=== PATIENT | male | born 1955 | race Caucasian/White ===

== ENCOUNTER 2018-08-10 08:19 | Day surgery (SDC) | payer MEDICARE, BC ==
[2018-08-10] MEDS ORDERED: Dexamethasone 4 MG/ML SDV IVPUSH ONE (08:20)
[2018-08-10] MEDS ORDERED: fentaNYL 100 MCG/2 ML SDV IV ONE (08:20)
[2018-08-10] MEDS ORDERED: Labetalol 20 MG/4 ML Syringe IVPUSH ONE (08:20)
[2018-08-10] MEDS ORDERED: Midazolam 1 MG/ML 2 ML SDV IV ONE (08:20)
[2018-08-10] MEDS ORDERED: Sodium Chloride 0.9% 10 ML Syringe FLUSH PRN (08:45)
--- NOTE | 2018-08-11 03:26 | OR ---
DATE OF OPERATION: 08/10/2018 SURGEON: Annabelle Lozada MD PREOPERATIVE DIAGNOSIS: Visually significant cataract, right eye. POSTOPERATIVE DIAGNOSIS: Visually significant cataract, right eye. PROCEDURE PERFORMED: Phacoemulsification with intraocular lens placement, right eye. HOSPICE ENTRANCE ATTENDANT: None. ANESTHESIA: Local with sedation. FINDINGS: Very dense cataract. COMPLICATIONS: None. IMPLANTS: An Abel [id number] 15.0 diopter lens. CDE: 31.98. DESCRIPTION OF PROCEDURE: After risks and benefits were reviewed with the patient, the right eye was marked with surgical pen and consent was obtained in the preoperative area. The patient received preoperative drops of moxifloxacin, ketorolac, and dilating drops. The patient also received topical tetracaine for anesthesia. The patient was taken to the operating room, where the patient was placed under monitored anesthesia care and received further tetracaine drops. A timeout was performed. The right eye was prepped and draped in the usual sterile fashion for ophthalmic surgery, and the microscope was brought into position and focused. A paracentesis incision was made followed by injection of 1% preservative-free lidocaine into the anterior chamber, followed by injection of Viscoat into the anterior chamber. A corneal limbal incision was made temporally. A cystotome was used to make the beginning of a capsulorhexis, which was carried around 360 degrees in a curvilinear fashion using Utrata forceps. A Redding cannula was used to hydrodissect and hydrodelineate the nucleus. The nucleus was removed in a divide and conquer manner using phacoemulsification. Irrigation and aspiration was used to remove the remaining cortical material. Provisc was injected into the capsular bag and the anterior chamber. A preloaded Abel [id number] 15.0 diopter lens, serial number [id number], was injected into the capsular bag. A Sinskey hook was used to center the lens. Irrigation and aspiration was used to remove the remaining cortical material and Viscoat from the anterior chamber. BSS on a cannula was used to inflate the anterior chamber and hydrate the wound. The wound was checked and found to be watertight. 1 mg of vancomycin was injected into the anterior chamber. Drapes were removed and the eye was cleaned, and a drop of brimonidine and Tobradex were placed. The eye was shielded, and the patient was taken to Recovery in stable condition. /[id number] CRYSTAL/DARNELL CC: GARRETT Shane MD MTDD
== END 2018-08-10 12:09 | disposition home or self-care (01) ==
LOC: FB.SDS 08:19
PROVIDERS: ATTEND Ophthalmology
DX: H25.9 Unspecified age-related cataract (principal); H35.371 Puckering of macula, right eye; J45.909 Unspecified asthma, uncomplicated; Z87.891 Personal history of nicotine dependence
CPT/HCPCS: 00142-QZ; J1100; J2001; J2250; J3010; J3490

== ENCOUNTER 2018-09-07 06:15 | Day surgery (SDC) | payer MEDICARE, BC ==
[2018-09-07] MEDS ORDERED: Midazolam 1 MG/ML 2 ML SDV IV ONE (06:16)
[2018-09-07] MEDS ORDERED: fentaNYL 100 MCG/2 ML SDV IV ONE (06:16)
--- NOTE | 2018-09-08 12:21 | OR ---
DATE OF OPERATION: 09/07/2018 SURGEON: Annabelle Lozada MD PREOPERATIVE DIAGNOSIS: Visually significant cataract, left eye. POSTOPERATIVE DIAGNOSES: 1. Visually significant cataract, left eye. 2. Floppy iris syndrome, left eye. PROCEDURE PERFORMED: Complex phacoemulsification with intraocular lens placement, left eye. CPT code 06297. SENIOR SOFTWARE ARCHITECT: None. ANESTHESIA: Local with sedation. COMPLICATIONS: None. BLOOD LOSS: None. FINDINGS: Floppy iris syndrome and dense cataracts. IMPLANTS: Abel [id number], 15.5 diopter lens implanted. CDE: 17.18. DESCRIPTION OF PROCEDURE: After risks and benefits were reviewed with the patient, consent was obtained in the preoperative area, and the left eye was marked with surgical pen. The patient received dilating drops and moxifloxacin along with ketorolac in the preoperative area. The patient was taken to the operating room, where a time-out was performed, and the patient was placed under monitored anesthesia care. Topical tetracaine was used for anesthesia. The left eye was prepped and draped for ophthalmic surgery and microscope was brought into position and focused. A paracentesis incision was made followed by injection of preservative-free 1% lidocaine into the anterior chamber, followed by injection of Viscoat into the anterior chamber. The pupil was noted to be poorly dilated. A microkeratome blade was used to make a corneal limbal incision temporarily. Next, a Malyugin ring 7.0 mm was used to retract the iris further, due to poor dilation and floppy iris syndrome. A cystotome was used to make the beginning of a capsulorhexis, which was carried around 360 degrees in a curvilinear fashion using Utrata forceps. A Redding cannula with BSS was used to hydrodissect and hydro-delineate the nucleus. The nucleus was removed in a [id number] manner using phacoemulsification. Irrigation and aspiration were used to remove the remaining cortical material. Provisc was used to inflate the capsular bag and a preloaded Abel [id number], 15.5 diopter lens, serial number [id number] was injected into the capsular bag. A Sinskey hook was used to position and center the lens. Next, the Malyugin ring was removed and discarded. Irrigation and aspiration were used to remove any remaining viscoelastic and cortical material from the anterior chamber. BSS on the cannula was used to inflate the anterior chamber and hydrate the wound. The wound was checked and found to be watertight. The drapes were removed, and the eye was cleaned. A drop of brimonidine 0.15% and a drop of TobraDex were placed. The eye was shielded, and the patient was taken to recovery in a stable condition. /[id number] CRYSTAL/DARNELL CC: GARRETT Shane MD MTDD
== END 2018-09-07 09:25 | disposition home or self-care (01) ==
LOC: FB.SDS 06:15
PROVIDERS: ATTEND Ophthalmology
DX: H25.9 Unspecified age-related cataract (principal); H21.81 Floppy iris syndrome; H52.13 Myopia, bilateral; Z87.891 Personal history of nicotine dependence
CPT/HCPCS: 00142; 66982; J2250; J3010